=== PATIENT | female | born 1965 | race Caucasian/White ===

== ENCOUNTER → 2017-10-14 | Outpatient (CLI) | payer BC ==
[~2017-10-14] MED LIST: ADVIL LIQUI-GE200 MG PO; ARTHRITIS PAIN325 M1 PO; ASPI81EC PO; B-122000 MCG MM; CALCIUM 600/VIT1 TAB PO; LEXAPRO 10MG10 MG PO; MAGIMIN-FORTE250 MG PO; MAREPA1200 MG PO; MULTIPLE VITAMI1 CAP PO; OSTEO-BI-FLEX 21 TAB PO; PERCOCET 325 MG1 TA2 PO; POTASSIUM GLUC595 MG PO; VITAMIN C BUFF500 MG PO; VITAMIN E1000 U/CAP PO
== END ==
LOC: MC.RAD 14:35
DX: Z12.31 Encounter for screening mammogram for malignant neoplasm of breast (principal); N63.10 Unspecified lump in the right breast, unspecified quadrant; N63.20 Unspecified lump in the left breast, unspecified quadrant

== ENCOUNTER → 2018-06-04 | Outpatient (CLI) | payer BC | LOC: COL.RAD 07:30 | DX: M50.11 Cervical disc disorder with radiculopathy, high cervical region (principal); Z98.1 Arthrodesis status | CPT/HCPCS: A9585 ==

== ENCOUNTER → 2020-09-29 | Outpatient (CLI) | payer BC | LOC: MC.RAD 16:57 | DX: Z12.31 Encounter for screening mammogram for malignant neoplasm of breast (principal) ==

== ENCOUNTER → 2020-10-06 | Outpatient (CLI) | payer BC | LOC: MC.RAD 06:57 | DX: D24.2 Benign neoplasm of left breast (principal) ==